=== PATIENT | female | born 1985 | race American Indian/Alaskan Native ===

== ENCOUNTER 2017-06-01 12:52 | Outpatient (CLI) | payer OTHER ==
--- NOTE | 2017-06-01 15:27 | Ultrasound Report ---
BILATERAL DIGITAL DIAGNOSTIC MAMMOGRAM with CAD and BILATERAL BREAST ULTRASOUND: 06/01/17 14:21:00 CLINICAL: Right breast lump and pain. She described a vague lump in the inner right breast but could not point to a specific lump. History of a left sebaceous cyst at 8:30 o'clock 14 cm from the nipple. COMPARISON:07/15/14 left breast ultrasound. FINDINGS: There are bilateral scattered fibroglandular densities. Partial effacement of a left asymmetry on the MLO view. Satisfactory effacement of left asymmetries on CC spot views. The right breast is negative. Ultrasound of left breast (including all four quadrants and the retroareolar area) was performed and demonstrated normal fibroglandular and fatty structures. No mass, cyst or shadowing. The previously described sebaceous cyst is not identified on this exam. Ultrasound of the right breast (including all four quadrants and the retroareolar area) was performed and demonstrated an irregular solid hypoechoic mass contiguous to the skin at 4:30 o'clock 9 cm from the nipple. It measures 9 x 4 x 9 mm. IMPRESSION: A probably benign sebaceous cyst at 4:30 o'clock right breast. Recommend short-term followup ultrasound in 3 months. Negative left breast. BI-RADS CATEGORY: 3 - - Probably Benign ACR BI-RADS MAMMOGRAPHIC CODES: 0 = Needs additional imaging evaluation; 1 = Negative; 2 = Benign; 3 = Probably benign; 4 = Suspicious; 5 = Malignant; 6 = Known biopsy-proven malignancy COMMENT: 1. Dense breast tissue, i.e., adenosis, fibrocystic changes, etc., may obscure an underlying neoplasm. 2. Approximately 10% of cancers are not detected with mammography. 3. A negative mammography report should not delay biopsy if a clinically suspicious mass is present. COMMENT: Patient follow-up letters are generated by our [employer] application.
== END 2017-06-01 12:53 | disposition home or self-care (01) ==
LOC: SPVWC 12:52
PROVIDERS: ATTEND General Practice
DX: N63 Unspecified lump in breast (principal); N64.4 Mastodynia
CPT/HCPCS: 76641; G0204; 77066